=== PATIENT | female | born 1970 | race Caucasian/White ===

== ENCOUNTER 2020-07-24 12:38 | Emergency (ER) | payer BC ==
--- NOTE | 2020-07-24 14:49 | EDM.PDOC ---
ED HPI GENERAL MEDICAL PROBLEM - General Chief Complaint: General Stated Complaint: ABD PAIN,WEAK Time Seen by Provider: 07/24/20 13:17 Source of Information: Reports: Patient, Old Records, RN, RN Notes Reviewed History Limitations: Reports: Uncooperative (pt in pain, unhappy about [facility] not being able to access her records) - History of Present Illness INITIAL COMMENTS - FREE TEXT/NARRATIVE: Patient states she has been dealing with this problem for several weeks. She has been prescribed 2 antibiotics for a UTI as well as antibiotics for a vaginal infection. A CT scan was completed and she was found to have an enlarged left ovary. She states she is scheduled for a ultrasound tomorrow but the ache is too unbearable for her to wait for her appointment tomorrow. He describes it as a ache not a pain. She is complaining of diarrhea since starting all of her antibiotics. She states she is wearing an incontinence pad due to being able to hold her urine and requires protection. Patient states she is uncomfortable. Onset: Gradual Duration: Week(s):, Getting Worse Location: Reports: Abdomen (lower left abd, ) Quality: Reports: Ache Severity: Moderate Improves with: Reports: Heat Therapy Worsens with: Reports: Movement Context: Reports: Other (enlarged left ovary) Associated Symptoms: Reports: Weakness - Related Data Allergies Allergy/AdvReac Type Severity Reaction Status Date / Time No Known Allergies Allergy Verified 07/24/20 13:07 Home Meds: Home Meds Cholecalciferol (Vitamin D3) [Vitamin D] 500 mg PO DAILY 12/17/19 [History] lisinopriL [Lisinopril] 20 mg PO DAILY 12/17/19 [History] Hydrocodone/Acetaminophen [Hydrocodon-Acetaminophen 5-325] 1 each PO Q4H PRN #20 tablet 07/24/20 [Rx] Past Medical History HEENT History: Reports: Impaired Vision Cardiovascular History: Reports: Hypertension Genitourinary History: Reports: None, UTI, Recurrent, Other (See Below) Other Genitourinary History: only has one kidney [employer] History: Reports: Psychiatric History: Reports: Anxiety - Past Surgical History Head Surgeries/Procedures: Reports: None Cardiovascular Surgical History: Reports: None GI Surgical History: Reports: Appendectomy Female Surgical History: Reports: Breast Implant, Breast Reconstruction, Salpingo-Oophorectomy, Other (See Below) Dermatological Surgical History: Reports: None Social & Family History - Tobacco Use Smoking Status *Q: Former Smoker Used Tobacco, but Quit: Yes Month/Year Tobacco Last Used: 1999 - Caffeine Use Caffeine Use: Reports: Coffee - Recreational Drug Use Recreational Drug Use: No ED ROS GENERAL - Review of Systems Review Of Systems: See Below Constitutional: Reports: Weakness, Decreased Appetite, Weight Loss HEENT: Reports: No Symptoms Respiratory: Reports: No Symptoms Cardiovascular: Reports: No Symptoms Endocrine: Reports: No Symptoms GI/Abdominal: Reports: Abdominal Pain, Diarrhea, Decreased Appetite. Denies: Black Stool, Bloody Stool, Constipation, Difficulty Swallowing : Reports: Dysuria, Incontinence. Denies: Flank Pain Musculoskeletal: Reports: No Symptoms Skin: Reports: No Symptoms Neurological: Reports: No Symptoms Psychiatric: Reports: Agitation, Anxiety Hematologic/Lymphatic: Reports: No Symptoms Immunologic: Reports: No Symptoms ED EXAM, GENERAL - Physical Exam Exam: See Below Free Text/Narrative:: Examination limited due to patient request "not to touch her abdomen, she did allow for auscultation but no palpation Exam Limited By: Uncooperative General Appearance: Alert, Anxious Respiratory/Chest: No Respiratory Distress, Lungs Clear, Normal Breath Sounds, No Accessory Muscle Use, Chest Non-Tender Cardiovascular: Normal Peripheral Pulses, Regular Rate, Rhythm, No Edema, No Gallop GI/Abdominal: Normal Bowel Sounds, No Abnormal Bruit, Guarding, Tender. No: Distended Extremities: Normal Inspection, Normal Range of Motion, No Pedal Edema, Normal Capillary Refill Neurological: Alert, Oriented Psychiatric: Anxious Skin Exam: Warm, Dry, Intact, Normal Color Lymphatic: No Adenopathy Course - Vital Signs Last Recorded V/S: Last Vital Signs Temp 36.7 C 07/24/20 13:08 Pulse 87 07/24/20 14:58 Resp 18 07/24/20 13:08 BP 160/108 H 07/24/20 14:58 Pulse Ox 98 07/24/20 13:08 - Orders/Labs/Meds Labs: Laboratory Tests 07/24/20 07/24/20 07/24/20 Range/Units 14:05 14:10 14:10 WBC 5.8 (4.5-11.0) K/uL RBC 4.43 (3.30-5.50) M/uL Hgb 15.3 H (12.0-15.0) g/dL Hct 43.8 (36.0-48.0) % MCV 99 H (80-98) fL MCH 35 H (27-31) pg MCHC 35 (32-36) % Plt Count 176 (150-400) K/uL Neut % (Auto) 57 (36-66) % Lymph % (Auto) 32 (24-44) % [place] % (Auto) 10 H (2-6) % Eos % (Auto) 1 L (2-4) % Baso % (Auto) 1 (0-1) % ESR 11 (0-25) mm/hr Sodium 138 L (140-148) mmol/L Potassium 4.1 (3.6-5.2) mmol/L Chloride 99 L (100-108) mmol/L Carbon Dioxide 28 (21-32) mmol/L Anion Gap 15.1 H (5.0-14.0) mmol/L BUN 13 (7-18) mg/dL Creatinine 1.0 (0.6-1.0) mg/dL Est Cr Clr Drug Dosing 53.85 mL/min Estimated GFR (MDRD) 58 L (>60) Glucose 101 (74-106) mg/dL Calcium 9.8 (8.5-10.1) mg/dL Total Bilirubin 0.9 (0.2-1.0) mg/dL AST 118 H (15-37) U/L ALT 103 H (12-78) U/L Alkaline Phosphatase 101 (46-116) U/L Total Protein 7.6 (6.4-8.2) g/dL Albumin 4.5 (3.4-5.0) g/dL Globulin 3.1 (2.3-3.5) g/dL Albumin/Globulin Ratio 1.5 (1.2-2.2) Urine Color (YELLOW) Urine Appearance (CLEAR) Urine pH (5.0-8.0) Ur Specific [place] (1.008-1.030) Urine Protein (NEGATIVE) mg/dL Urine Glucose (UA) (NEGATIVE) mg/dL Urine Ketones (NEGATIVE) mg/dL Urine Occult Blood (NEGATIVE) Urine Nitrite (NEGATIVE) Urine Bilirubin (NEGATIVE) Urine Urobilinogen (0.2-1.0) EU/dL Ur Leukocyte Esterase (NEGATIVE) Urine RBC (0-5) Urine WBC (0-5) Ur Epithelial Cells Amorphous Sediment Urine Bacteria Urine Mucus 07/24/20 Range/Units 15:30 WBC (4.5-11.0) K/uL RBC (3.30-5.50) M/uL Hgb (12.0-15.0) g/dL Hct (36.0-48.0) % MCV (80-98) fL MCH (27-31) pg MCHC (32-36) % Plt Count (150-400) K/uL Neut % (Auto) (36-66) % Lymph % (Auto) (24-44) % [place] % (Auto) (2-6) % Eos % (Auto) (2-4) % Baso % (Auto) (0-1) % ESR (0-25) mm/hr Sodium (140-148) mmol/L Potassium (3.6-5.2) mmol/L Chloride (100-108) mmol/L Carbon Dioxide (21-32) mmol/L Anion Gap (5.0-14.0) mmol/L BUN (7-18) mg/dL Creatinine (0.6-1.0) mg/dL Est Cr Clr Drug Dosing mL/min Estimated GFR (MDRD) (>60) Glucose (74-106) mg/dL Calcium (8.5-10.1) mg/dL Total Bilirubin (0.2-1.0) mg/dL AST (15-37) U/L ALT (12-78) U/L Alkaline Phosphatase (46-116) U/L Total Protein (6.4-8.2) g/dL Albumin (3.4-5.0) g/dL Globulin (2.3-3.5) g/dL Albumin/Globulin Ratio (1.2-2.2) Urine Color Yellow (YELLOW) Urine Appearance Slightly cloudy A (CLEAR) Urine pH 7.0 (5.0-8.0) Ur Specific [place] 1.025 (1.008-1.030) Urine Protein 30 H (NEGATIVE) mg/dL Urine Glucose (UA) Negative (NEGATIVE) mg/dL Urine Ketones 40 H (NEGATIVE) mg/dL Urine Occult Blood Negative (NEGATIVE) Urine Nitrite Negative (NEGATIVE) Urine Bilirubin Small H (NEGATIVE) Urine Urobilinogen 0.2 (0.2-1.0) EU/dL Ur Leukocyte Esterase Negative (NEGATIVE) Urine RBC Not seen (0-5) Urine WBC Not seen (0-5) Ur Epithelial Cells Many Amorphous Sediment Few Urine Bacteria Few Urine Mucus Few Labs values discussed with pt. UA -NO UTI pt has had recent planned weight loss explaining protein, bilirubin in the ua; Sed Rat - no inflammatory process CBC - no current infection - Elevated AST/ALT - recent use of large doses of I buprofen and tylenol. - Re-Assessments/Exams Free Text/Narrative Re-Assessment/Exam: 07/24/20 16:41 Patient still feeling uncomfortable. She will followup with her primary care provider. She will keep her ultrasound appointment and schedule her urology appointment. Pt is provided pain medication and educated on safe dosing. Pt understand current instruction and feels comfortable with going home. Pt should take her b/p medicine that she did not take this morning. 07/24/20 17:04 Departure - Departure Time of Disposition: 16:59 Disposition: Home, Self-Care 01 Clinical Impression: Abdominal pain Qualifiers: Abdominal location: right lower quadrant Qualified Code(s): R10.31 - Right lower quadrant pain - Discharge Information *PRESCRIPTION DRUG MONITORING PROGRAM REVIEWED*: Yes *COPY OF PRESCRIPTION DRUG MONITORING REPORT IN PATIENT BALJINDER: No Prescriptions: Hydrocodone/Acetaminophen [Hydrocodon-Acetaminophen 5-325] 1 each PO Q4H PRN #20 tablet PRN Reason: Abdominal Pain Instructions: Abdominal Pain, Adult, [id number] Referrals: Sarah Jones PA-C [Primary Care Provider] - Forms: ED Department Discharge Additional Instructions: Keep ultrasound appointment, followup with urology as previously directed. Follow up with primary care provider. Return to ER if symptoms worsen or become intolerable if unable to see Primary care provider Sepsis Event Note (ED) - Evaluation Sepsis Screening Result: No Definite Risk - Focused Exam Vital Signs: Vital Signs Temp Pulse Resp BP Pulse Ox 07/24/20 14:58 87 160/108 H 07/24/20 14:00 82 145/97 H 07/24/20 13:08 36.7 C 91 18 154/110 H 98 07/24/20 13:05 36.7 C 91 18 154/110 H 98
== END 2020-07-24 16:59 | disposition home or self-care (01) ==
LOC: JP.ED 12:38
DX: R10.31 Right lower quadrant pain (principal); I10 Essential (primary) hypertension; Z87.891 Personal history of nicotine dependence; Z79.899 Other long term (current) drug therapy
CPT/HCPCS: 36415; 80053; 81001; 85025; 85651; 99283; 99284

== ENCOUNTER 2021-02-04 19:16 | Emergency (ER) | payer BC ==
--- NOTE | 2021-02-04 20:03 | EDM.PDOCBH ---
ED HPI GENERAL MEDICAL PROBLEM - General Chief Complaint: Behavioral/Psych Stated Complaint: EVAL Time Seen by Provider: 02/04/21 19:40 Source of Information: Reports: Patient, Family, Police History Limitations: Reports: Altered Mental Status, Physical Impairment (Patient is in a very manic state) - History of Present Illness INITIAL COMMENTS - FREE TEXT/NARRATIVE: 50-year-old female who has had "zachary all my life" has not been taking her medications as prescribed over the past unknown period of time, she was seen by her primary provider and started on Seroquel to help her sleep and that seem to be helping. Tonight she seemed to be doing better, they went to a basketball game and then out for supper but during supper she got up and walked out and left. They later found her in a adventism, manic, argumentative so they brought her into the emergency room. I was told prior to going in that they felt she had bipolar issues. We have no other past records on her. I do not know what her medications are at this time. Onset: Unknown/Unsure Associated Symptoms: Reports: No Other Symptoms - Related Data Allergies Allergy/AdvReac Type Severity Reaction Status Date / Time No Known Allergies Allergy Verified 02/04/21 19:18 Home Meds: Home Meds Cholecalciferol (Vitamin D3) [Vitamin D] 500 mg PO DAILY 12/17/19 [History] lisinopriL [Lisinopril] 20 mg PO DAILY 12/17/19 [History] DULoxetine [Cymbalta] 1 tab PO DAILY 02/04/21 [History] Gabapentin [Neurontin] 2 tab PO TID 02/04/21 [History] QUEtiapine [SEROquel XR] 1 tab PO BEDTIME 02/04/21 [History] hydrOXYzine HCL [hydrOXYzine] 1 tab PO 02/04/21 [History] Past Medical History HEENT History: Reports: Impaired Vision Cardiovascular History: Reports: Hypertension Genitourinary History: Reports: None, UTI, Recurrent, Other (See Below) Other Genitourinary History: only has one kidney [employer] History: Reports: Psychiatric History: Reports: Anxiety, Bipolar - Past Surgical History Head Surgeries/Procedures: Reports: None Cardiovascular Surgical History: Reports: None GI Surgical History: Reports: Appendectomy Female Surgical History: Reports: Breast Implant, Breast Reconstruction, Salpingo-Oophorectomy, Other (See Below) Dermatological Surgical History: Reports: None Social & Family History - Caffeine Use Caffeine Use: Reports: Coffee ED ROS GENERAL - Review of Systems Review Of Systems: See Below Constitutional: Denies: Fever, Chills (Patient will not cooperate for a review of systems) ED EXAM, BEHAVIORAL HEALTH - Physical Exam Exam: See Below Exam Limited By: Altered Mental Status (Patient is very manic and refusing to be touched) General Appearance: Alert, Anxious Respiratory/Chest: No Respiratory Distress Psychiatric: Agitated, Threatening Behavior (Very abusive with her language towards staff) Skin Exam: Warm, Dry COURSE, BEHAVIORAL HEALTH COMP - Course Vital Signs: Last Vital Signs Temp 97.0 F 02/04/21 20:22 Pulse 70 02/04/21 20:22 Resp 14 02/04/21 20:22 BP 116/85 02/04/21 20:22 Pulse Ox 99 02/04/21 20:22 Orders, Labs, Meds: Laboratory Tests 02/04/21 Range/Units 20:00 Urine Opiates Screen Negative (NEGATIVE) Ur Oxycodone Screen Negative (NEGATIVE) Urine Methadone Screen Negative (NEGATIVE) Ur Propoxyphene Screen Negative (NEGATIVE) Ur Barbiturates Screen Negative (NEGATIVE) Ur Tricyclics Screen Negative (NEGATIVE) Ur Phencyclidine Scrn Negative (NEGATIVE) Ur Amphetamine Screen Negative (NEGATIVE) U Methamphetamines Scrn Negative (NEGATIVE) Urine MDMA Screen Negative (NEGATIVE) U Benzodiazepines Scrn Negative (NEGATIVE) U Cocaine Metab Screen Negative (NEGATIVE) U Marijuana (THC) Screen Presumptive positive H (NEGATIVE) Re-Assessment/Re-Exam: Unfortunately I was trying to calm her down to see if I can get her to consider starting back up her medications because she denies any suicidal ideation. However I mentioned the word "bipolar" as one of her possible diagnoses to try to get her history and she just started screaming, yelling, swearing and refused to cooperate any further. She then asked to go to the bathroom and is sure she stepped out the door she ran outside and left. At this time her and police are looking for her. If she does return she will have to be put on a hold. By 2 AM the patient had not returned. Departure - Departure Time of Disposition: 20:36 Disposition: Eloped 07 Clinical Impression: Altered mood associated with zachary - Discharge Information Referrals: PCP,None [Primary Care Provider] - Forms: ED Department Discharge Care Plan Goals: This patient eloped before instructions could be given. Sepsis Event Note (ED) - Focused Exam Vital Signs: Vital Signs Temp Pulse Resp BP Pulse Ox 02/04/21 20:22 97.0 F 70 14 116/85 99
== END 2021-02-04 20:38 | disposition left against medical advice (07) ==
LOC: JP.ED 19:16
DX: F30.2 Manic episode, severe with psychotic symptoms (principal); I10 Essential (primary) hypertension; Z79.899 Other long term (current) drug therapy
CPT/HCPCS: 80305-QW; 99284

== ENCOUNTER 2022-10-26 15:24 | Emergency (ER) | payer BC, OTHER | END 2022-10-26 16:50 | disposition home or self-care (01) | LOC: JP.ED 15:24 | DX: F33.1 Major depressive disorder, recurrent, moderate (principal); I10 Essential (primary) hypertension; Z79.899 Other long term (current) drug therapy | CPT/HCPCS: 99284 ==

== ENCOUNTER 2023-01-21 22:00 | Emergency (ER) | payer OTHER ==
[2023-01-21] MEDS ORDERED: Ondansetron 4 MG Tab.DIS PO ONE (22:24)
[2023-01-21] MEDS ORDERED: Haloperidol Lactate 5 MG/ML SDV IM ONE (22:31)
== END 2023-01-22 04:20 | disposition home or self-care (01) ==
LOC: JP.ED 22:00
DX: F10.129 Alcohol abuse with intoxication, unspecified (principal); I10 Essential (primary) hypertension; F17.210 Nicotine dependence, cigarettes, uncomplicated; Z79.899 Other long term (current) drug therapy; Y90.7 Blood alcohol level of 200-239 mg/100 ml
CPT/HCPCS: 36415; 80307; 99285; Q0162

== ENCOUNTER 2023-05-18 19:45 | Emergency (ER) | payer OTHER ==
[2023-05-18] MEDS ORDERED: Sodium Chloride 0.9% 10 ML Syringe FLUSH PRN (21:02)
[2023-05-18 21:13] LABS: BASOPHILS ABSOLUTE AUTO 0.04 K/uL (0.00-0.10); BASOPHILS PERCENT AUTO 0.7 % (0.1-1.3); EOSINOPHILS ABSOLUTE AUTO 0.04 K/uL (0.00-0.40); EOSINOPHILS PERCENT AUTO 0.7 % (0.0-5.4); HEMATOCRIT 35.4 % (34.3-46.0); HEMOGLOBIN 12.4 g/dL (11.2-15.5); IMMATURE GRAN ABSOLUTE AUTO 0.03 K/uL (0.00-0.23); IMMATURE GRAN PERCENT AUTO 0.5 % (0.0-0.7); LYMPHOCYTES ABSOLUTE AUTO 1.19 K/uL (0.8-3.3); LYMPHOCYTES PERCENT AUTO 19.6 % (11.4-47.7); MEAN CORPUSCULAR HEMOGLOBIN 33.6 pg (31.6-35.5); MEAN CORPUSCULAR VOLUME 95.9 fL (81.4-99.0); MONOCYTES PERCENT AUTO 3.3 % (3.3-12.6); NEUTROPHILS ABSOLUTE AUTO 4.56 K/uL (1.0-7.6); NEUTROPHILS PERCENT AUTO 75.2 % (40.0-78.1); PLATELET COUNT,PLT 200 K/uL (130-375); RED BLOOD CELL COUNT 3.69 M/uL (3.77-5.24); WHITE BLOOD CELL COUNT,WBC 6.1 K/uL (3.2-11.0)
[2023-05-18] MEDS ORDERED: Ondansetron 4 MG Tab.DIS PO ONE (21:26)
[2023-05-18 21:35] LABS: A/G RATIO 1.1 (1.2-2.2); ALANINE AMINOTRANSFERASE,ALT 29 U/L (12-78); ALBUMIN 3.6 g/dL (3.4-5.0); ALKALINE PHOSPHATASE 98 U/L (46-116); ASPARTATE AMNIOTRANSFERASE,AST 26 U/L (15-37); BILIRUBIN TOTAL 0.4 mg/dL (0.2-1.0); BLOOD UREA NITROGEN,BUN 10 mg/dL (7-18); CALCIUM 9.2 mg/dL (8.5-10.1); CARBON DIOXIDE,CO2 25 mmol/L (21-32); CHLORIDE,CL 104 mmol/L (100-108); CREATININE 0.9 mg/dL (0.6-1.0); EST CRCL DRUG DOSING (CG) 56.52 mL/min; ESTIMATED GFR 76 mL/min (>60); GLUCOSE RANDOM 103 mg/dL (74-106); POTASSIUM,K 4.3 mmol/L (3.6-5.2); PROTEIN TOTAL,TP 6.9 g/dL (6.4-8.2); SODIUM,NA 139 mmol/L (140-148)
[2023-05-18 21:36] LABS: ANION GAP 14.3 mmol/L (5.0-14.0)
[2023-05-18 22:38] LABS: APPEARANCE,URINE CLEAR (CLEAR); BILIRUBIN,URINE NEGATIVE (NEGATIVE); COLOR,URINE YELLOW (YELLOW); GLUCOSE,URINE NEGATIVE (NEGATIVE); KETONES,URINE NEGATIVE (NEGATIVE); LEUKOCYTE ESTERASE,URINE NEGATIVE (NEGATIVE); NITRITE,URINE NEGATIVE (NEGATIVE); OCCULT BLOOD,URINE NEGATIVE (NEGATIVE); PH,URINE 6.5 (5.0-8.0); PROTEIN,URINE NEGATIVE (NEGATIVE); UROBILINOGEN,URINE 0.2 EU/dL (0.2-1.0)
[2023-05-18 22:42] LABS: AMORPHOUS SEDIMENT,URINE NOT SEEN; BACTERIA,URINE RARE; EPITHELIAL CELLS,URINE RARE; MUCUS,URINE NOT SEEN; RBC,URINE 0-5 (0-5); WBC,URINE 0-5 (0-5)
== END 2023-05-18 23:06 | disposition home or self-care (01) ==
LOC: JP.ED 19:45
DX: S00.06XA Insect bite (nonvenomous) of scalp, initial encounter (principal); I10 Essential (primary) hypertension; Z79.899 Other long term (current) drug therapy; W57.XXXA Bitten or stung by nonvenomous insect and other nonvenomous arthropods, initial encounter
CPT/HCPCS: 36415; 80053; 81001; 83605; 85025; 86140; 99283; Q0162

== ENCOUNTER 2023-07-21 23:42 | Emergency (ER) | payer OTHER | END 2023-07-22 00:05 | disposition left against medical advice (07) | LOC: JP.ED 23:42 | DX: Z53.21 Procedure and treatment not carried out due to patient leaving prior to being seen by health care provider (principal) ==